=== PATIENT | male | born 1990 | race Caucasian/White ===

== ENCOUNTER 2023-10-30 08:26 | Emergency (ER) | payer SELFPAY ==
[2023-10-30 08:27] VITALS: BP 148/80; PULSE 81; RESP 16; TEMP 36.8; O2SAT 99
--- NOTE | 2023-10-30 08:35 | W.ED.GENAD ---
Discharge Plan Disposition Patient Disposition: Home Condition: Good Discharge Details Clinical Impression: Cellulitis of foot Primary Care Provider: Izabella,Local ED Provider: Ignacio Nunes Home Meds and New Rx's Prescriptions: New cephalexin 500 mg capsule 500 mg PO QID 7 Days Qty: 28 0RF Discharge Instructions Instructions: Cellulitis (Skin Infection), Adult ED Additional Instructions: At this time you have evidence of cellulitis for your foot. Please take the antibiotics Keflex as directed. Please monitor your foot closely and watch for any increasing of redness, worsening swelling, or worsening pain. There is likely an allergic component as well from the sting or bite that you received. Please take 10 mg of loratadine [id number] every day, and you can take an additional 25 mg of Benadryl at night. If you notice any worsening of your symptoms, or any new symptoms such as vomiting, diarrhea, fever, chills, shortness of breath, chest pain, numbness, weakness, or fainting , please return immediately to the emergency department for reevaluation. Please follow up with your primary care provider as soon as possible for reassessment and reevaluation. As always, it was a pleasure participating in your medical care today. HPI General Date/Time Provider Initiated Documentation: 10/30/23 08:35. HPI Narrative: 33-year-old male with no significant past medical history presents today for evaluation of redness and swelling on his right foot. Patient states that he was stung by something 2 days ago, and since then he has had pain in his right foot and now he has had swelling and redness over the last 24 hours. Pain with bearing weight. He denies fever or chills. No history of HIV or other pertinent past medical history. He denies pain in his calf or leg. No other modifying factors. Related Data Home Medications ?Medication ?Instructions ?Recorded ?Confirmed cephalexin 500 mg capsule 500 mg PO QID 7 days #28 caps 10/30/23 Previous Rx's ?Medication ?Instructions ?Recorded cephalexin 500 mg capsule 500 mg PO QID 7 days #28 caps 10/30/23 Allergies Allergy/AdvReac Type Severity Reaction Status Date / Time No Known Allergies Allergy Unverified 10/30/23 08:32 General Stated Complaint: InsectBite AMY: 4 Review of Systems All systems reviewed & are unremarkable except as noted in HPI and below Exam Narrative Exam Narrative: 1.Const: Well-nourished, Well-developed, appearing stated age 2.Eyes: PERRL, no conjunctival injection, and symmetrical lids. 3.ENT: Atraumatic external nose and ears. Moist MM. Neck: Symmetric, trachea midline, No thyromegaly. 4.CVS: +S1/S2, No murmurs or gallops. Peripheral pulses 2+ and equal in all extremities. Brisk capillary refill in all extremities. 5.RESP: Unlabored respiratory effort. Clear to auscultation bilaterally. No wheezes rales or rhonchi 6.GI: Soft, Nontender/Nondistended, No hepatosplenomegaly. No guarding or rebound. 7.MSK: Normocephalic/Atraumatic, Extremities w/o deformity or ttp No cyanosis or clubbing, Normal movement of all extremities 8.Skin: Warm, Dry. On the patient's right foot he has mild swelling over the 2nd through 5th metatarsal area. Minimal tenderness. Only a small amount of tenderness noted at the MTP joints of the fourth and fifth digit. There is also surrounding erythema on the dorsal aspect of the foot coming from that same area of the fourth and fifth digit extending proximally about 3 cm in a semicircular form. No sausage shaped digits. No subcutaneous crepitus. Evaluation of the foot for the plantar and dorsal aspect as well as in between the toes shows no evidence of stinger. 9.Neuro: neurology director II-XII grossly intact. Sensation grossly intact, no focal neurologic deficits. 10.Psych: (AAO) x3. Appropriate mood and affect Course Vital Signs Vital signs: Vital Signs Temperature 36.8 C 10/30/23 08:27 Pulse 81 10/30/23 08:27 Respiratory Rate 16 10/30/23 08:27 Blood Pressure 148/80 H 10/30/23 08:27 Pulse Oximetry 99 10/30/23 08:27 Temperature 36.8 C 10/30/23 08:27 Temperature Source Skin 10/30/23 08:27 Pulse 81 10/30/23 08:27 Respiratory Rate 16 10/30/23 08:27 Respiratory Effort Normal, Non-Labored 10/30/23 08:30 Blood Pressure 148/80 H 10/30/23 08:27 Blood Pressure Position Sitting 10/30/23 08:27 Pulse Oximetry 99 10/30/23 08:27 Oxygen Delivery Method Room Air 10/30/23 08:27 Oxygen Flow Rate 0 10/30/23 08:27 Pain Level 2 10/30/23 08:27 Medical Decision Making 33-year-old male with no significant past medical history presents today for evaluation of redness and swelling on his right foot. Patient states that he was stung by something 2 days ago, and since then he has had pain in his right foot and now he has had swelling and redness over the last 24 hours. Pain with bearing weight. He denies fever or chills. No history of HIV or other pertinent past medical history. He denies pain in his calf or leg. No other modifying factors. On the patient's right foot he has mild swelling over the 2nd through 5th metatarsal area. Minimal tenderness. Only a small amount of tenderness noted at the MTP joints of the fourth and fifth digit. There is also surrounding erythema on the dorsal aspect of the foot coming from that same area of the fourth and fifth digit extending proximally about 3 cm in a semicircular form. No sausage shaped digits. No subcutaneous crepitus. Evaluation of the foot for the plantar and dorsal aspect as well as in between the toes shows no evidence of stinger. Symptoms consistent with mild cellulitis and likely mild irritation from hymenoptera bite or sting. Will recommend Keflex for treatment of bacterial component, as well as loratadine 10 mg daily and Benadryl 25 mg at night. Discussed red flags which to return. Small dose of Keflex will be given here and prescription for home use. I have extensively reviewed the treatment plan and discharge instructions with the patient. I have addressed all patient concerns at this time. The patient was made aware of what symptoms to monitor for that would warrant a return to the emergency department. Discussed the plan with the patient, they demonstrate verbal understanding and agreement with our assessment and plan at this time. The documentation in this chart was dictated using [employer] dictation software. Please excuse any dictation errors. Quality:SDOH Health Related Social Needs: No Data to Display PFSH All Active Problems Cellulitis of foot (Acute) Social History Smoking risk assessment performed?: No Alcohol Intake: current Alcohol Intake frequency: a few times a month Do you feel safe at home: Yes Do you feel safe in your relationship?: Yes PAWSS Have you Been Recently Intoxicated or Drunk Within the Last 30 days?: No Have you Ever Experienced Previous Episodes of Alcohol Withdrawal?: No Have you ever Experienced Withdrawal Seizures?: No Have you ever Experienced Delirium Tremens(DT)s?: No Have you ever undergone Alcohol Rehabilitation Treatment (i.e, inpt ot outpatient treatment programs)?: No Have you ever Experienced Blackouts?: No Have you ever Combined Alcohol with other Downers within the last 90 days?: No Have you ever Combined Alcohol with any other Substance of Abuse during the last 90 days?: No Positive Blood Alcohol level on Presentation? [PCS.BAL]: No Evidence of Increased Autonomic Activity (i.e. HR>120, tremor, sweating, agitation, nausea)?: No Result: 0
[2023-10-30] MEDS: Cephalexin 500 MG CAP, 4 CAPS/BTL PO (08:42)
== END 2023-10-30 08:42 | disposition home or self-care (01) ==
PROVIDERS: Emergency Provider Student in an Organized Health Care Education/Training Program
DX: L03.115 Cellulitis of right lower limb (principal)
CPT/HCPCS: 99283